=== PATIENT | female | born 1975 | race Caucasian/White ===

== ENCOUNTER 2018-08-29 06:22 | Day surgery (SDC) | payer OTHER ==
[2018-08-29] MEDS ORDERED: CEFAZOLIN 1 GM INJ (07:00)
[2018-08-29 07:25] LABS: ADD MAN DIFF? NO
[2018-08-29 07:32] LABS: BASOPHILS % 0.4 % (0.0-2.0); EOSINOPHILS # 0.1 10^3/ul (0.0-0.5); EOSINOPHILS % 1.7 % (0.0-7.0); HEMATOCRIT 40.4 % (37.0-47.0); HEMOGLOBIN 12.9 g/dl (12.0-16.0); LYMPHOCYTES # 1.8 10^3/ul (0.8-2.9); MEAN CORPUSCULAR HEMOGLOBIN 26.5 pg (29.0-33.0); MEAN CORPUSCULAR HGB CONC 31.9 g/dl (32.0-37.0); MEAN CORPUSCULAR VOLUME 83.1 fl (82.0-101.0); MEAN PLATELET VOLUME 8.8 fl (7.4-10.4); MONOCYTE # 0.7 10^3/ul (0.3-0.9); MONOCYTES % 9.6 % (0.0-11.0); NEUTROPHIL # 4.4 10^3/ul (1.6-7.5); NEUTROPHILS % 61.7 % (39.0-77.0); PLATELET COUNT 307 10^3/UL (140-415); RED BLOOD COUNT 4.86 10^6/ul (4.20-5.40); RED CELL DISTRIBUTION WIDTH 13.7 % (11.5-14.5)
[2018-08-29 07:32] LABS: WHITE BLOOD COUNT 7.1 10^3/ul (4.8-10.8)
[2018-08-29] MEDS ORDERED: MIDAZOLAM 1 MG/ML 2 ML INJ (07:43)
[2018-08-29] MEDS ORDERED: FENTAnyl 50 MCG/ML VIAL (07:44)
[2018-08-29] MEDS ORDERED: KETOROLAC 30 MG INJ (08:48)
[2018-08-29] MEDS ORDERED: PROPOFOL 20 ML (08:55)
[2018-08-29] MEDS ORDERED: ROCURONIUM 50 MG INJ (08:55)
[2018-08-29] MEDS ORDERED: LIDOCAINE 2% (SDV) 5 ML INJ (08:55)
[2018-08-29] MEDS ORDERED: NEOSTIGMINE 10 MG INJ (08:56)
[2018-08-29] MEDS ORDERED: GLYCOPYRROLATE 0.4 MG INJ (08:56)
[2018-08-29] MEDS ORDERED: DIPHENHYDRAMINE 50 MG INJ IV (09:30)
[2018-08-29] MEDS ORDERED: ONDANSETRON 4 MG INJ IV (09:30)
[2018-08-29] MEDS ORDERED: METOCLOPRAMIDE 10 MG INJ IV (09:30)
[2018-08-29] MEDS ORDERED: FENTAnyl 50 MCG/ML VIAL IV (09:30)
[2018-08-29] MEDS ORDERED: HYDROmorphONE 1 MG/5 ML IV SYRINGE IV ×2 (09:30)
[2018-08-29] MEDS ORDERED: MEPERIDINE 25 MG INJ IV (09:30)
== END 2018-09-05 08:05 | disposition home or self-care (01) ==
LOC: SDS 06:22
DX: Z30.2 Encounter for sterilization (principal)
CPT/HCPCS: 58670; 85025; 86850; 86900; 86901